=== PATIENT | female | born 1985 | race Caucasian/White ===

== ENCOUNTER 2016-09-15 22:52 | Emergency (ER) | payer MEDICAID ==
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
[2016-09-16 03:04] VITALS: BP 109/61
== END 2016-09-16 02:56 | disposition home or self-care (01) ==
LOC: ER 22:52
DX: S60.221A Contusion of right hand, initial encounter (principal); Y04.2XXA Assault by strike against or bumped into by another person, initial encounter; F41.1 Generalized anxiety disorder

== ENCOUNTER 2016-12-23 14:28 | Emergency (ER) | payer MEDICAID ==
[2016-12-23 14:59] VITALS: BP 116/66
[2016-12-23] MEDS ORDERED: ACETAMINOPHEN 500 MG TABLET PO ONE (15:08)
--- OUTSIDE RECORDS SUMMARY | 2016-12-23 15:18 | XMS REPORT | Continuity of Care Document ---
:1985 Author Organization [facility] ([facility]) Address [address] [place] [address] Phone [phone] Care Team Providers Name Role Phone Unavailable Primary Care Provider Unavailable Source Comments This disclosure is being made pursuant to the Care Everywhere program, applicable federal and state laws, and may not contain all informaitonavailable regarding this patient.[facility] ([facility]) Active Allergies and Adverse Reactions No Active Allergies Current Medications Not on file Active Problems Not on file Social History Tobacco Use Types Packs/Day Years Used Date Never Assessed Last Filed Vital Signs Vital Sign Reading Time Taken Blood Pressure - - Pulse - - Temperature - - Respiratory Rate - - Height 1.63 m (5' 4.17") 02/26/2005 9:32 AM CDT Weight 63.2 kg (139 lb 5.3 oz) 02/26/2005 9:32 AM CDT Body Mass Index 23.79 02/26/2005 9:32 AM CDT Oxygen Saturation - - Plan of Care Health Maintenance Due Date Last Done Comments Hepatitis B Vaccine (1 of 3 - Primary Series) 1987 Tdap Vaccine 1998 Cervical Cancer Screening 2005 Lipid Disorder Screening 2005 MMR Vaccine 2005 Td Vaccine 2005 Varicella Vaccine (1 of 2 - Adult - No Evidence of 2005 Immunity) Influenza Vaccine: Seasonal (#1) 04/06/2016 Results from Last 3 Months Not on file
--- NOTE | 2016-12-23 15:37 | ERNOTE ---
Medical Problem HPI - Narrative Date of Service: 12/23/16 - General Chief Complaint: General Assessment Time Seen by Provider: 12/23/16 14:59 Source: patient Exam Limitations: no limitations - Immun/Allergies/Home Medications Immunizations: IMMUNIZATION HX Immunizations Up to Date Yes History of Influenza Vaccine Yes Hx Pneumococcal Vaccination No Allergies/Adverse Reactions: Allergies ibuprofen [From Advil] Adverse Reaction (Mild, Verified 12/23/16 14:59) stomache castañeda Home Medications: HOME MEDICATIONS Amox Tr/Potassium Clavulanate [Augmentin 875-125 Tablet] 875 mg PO Q12H #20 tab 12/23/16 [Last Taken Unknown] oxyCODONE HCL/ACETAMINOPHEN [Percocet 5 MG/325 MG] 1 tab PO Q6H #20 tablet 12/23 [Last Taken Unknown] - History of Present History Narrative: Patient comes due to L ear pain and drainage. Timing: constant Severity: severe Modifying Factors - (Improves): Present: other - nothing Modifying Factors - (Worsens): Present: other - nothing Review of Systems - Review of Systems Constitutional: Absent: fever, chills, weakness, malaise EYE: Present: no symptoms reported ENT: Present: ear pain - L ear, ear discharge - L ear Respiratory: Present: no symptoms reported Cardiology: Present: no symptoms reported Gastrointestinal/Abdominal: Present: no symptoms reported Genitourinary: Present: no symptoms reported Musculoskeletal: Present: no symptoms reported Skin: Present: no symptoms reported Neurological: Present: no symptoms reported Endocrine: Present: no symptoms reported Hematologic/Lymphatic: Present: no symptoms reported Psych: Present: no symptoms reported All Other Systems: All systems neg except as marked - Patient's Past Medical History Patient History - Medical: Anxiety, Other Patient History - Cardiac/Respiratory: No pertinent hx Patient History - Cancer: No Hx of Cancer Patient History - Surgical Procedures: Appendectomy, D & C, Tubal Ligation, Other Patient History - Other: None - Family History Father Family History - Medical: Renal Disease Brother Family History - Medical: Seizures, Other Grandfather-Maternal Family History - Medical: Diabetes Type 2 Grandmother-Maternal Family History - Medical: No pertinent hx Family History - Cardiac/Respiratory: No pertinent hx - Social History Living Situations: home Psych History: Hx of Anxiety, Hx of Depression Have you smoked in the past 12 months: No Alcohol Use: none Drug Use: none - Immunizations Immunizations Up to Date: Yes Hx Pneumococcal Vaccination: No History of Influenza Vaccine: Yes Physical Exam - Physical Exam General Appearance: Present: wd/wn, alert, no apparent distress Eye Exam: Normal inspection: bilateral, PERRL: bilateral, EOMI: bilateral Ears, Nose, Throat: Present: abnormal TM (L) - There is dullness, erythema, and swelling. There is a purulent discharge coming out the TM. Perforation at 6 o' clock was noticed., normal pharynx. Absent: tonsillar swelling, dry mucous membranes Neck: Present: normal inspection, nontender Respiratory: Present: no respiratory distress, normal breath sounds, no accessory muscle use, chest nontender, lungs clear Cardiovascular/Chest: Present: regular rate, rhythm, no murmur, normal peripheral pulses Gastrointestinal/Abdominal: Present: normal bowel sounds, nontender, nondistended, soft, no organomegaly Back Exam: Present: normal inspection, normal range of motion, no CVA tenderness , no vertebral tenderness Extremity Exam: Present: normal inspection, non-tender, normal range of motion, no edema Neurological Exam: Present: alert, oriented, normal mood/affect, no motor/ sensory deficits Skin Exam: Present: normal color, warm/dry Lymphatic Exam: Present: no adenopathy ED Progress - Date and Time Seen: Date and Time: 12/23/16 15:34 Patient will be given pain management for L otitis media and antibiotics. Patient is to follow up with PCP. - Vital Signs Patient's Vital Signs:: I have reviewed the patient's vital signs. Vital Signs: Vital Signs 12/23/16 14:51 Temperature 37 C Pulse Rate 76 Respiratory 16 Rate Blood Pressure 116/66 O2 Sat by Pulse 98 Oximetry - Progress/Reassessment Chief Complaint: General Assessment Progress:: Unchanged - Transfer of Care Expected Disposition: Discharge Plan - Plan Plan: F/U with PCP. Departure - Departure Clinical Impression: Otitis media of left ear Qualifiers: Otitis media type: suppurative Chronicity: acute Recurrence: not specified as recurrent Spontaneous tympanic membrane rupture: with spontaneous rupture Qualified Code(s): H66.012 - Acute suppurative otitis media with spontaneous rupture of ear drum, left ear Disposition: Home self-care Condition: Stable Instructions: Otitis Media, Adult, [id number], Eardrum Perforation Referrals: WengerKeller,Arun, MD [Primary Care Provider] - Prescriptions: Amox Tr/Potassium Clavulanate [Augmentin 875-125 Tablet] 875 mg PO Q12H #20 tab oxyCODONE HCL/ACETAMINOPHEN [Percocet 5 MG/325 MG] 1 tab PO Q6H #20 tablet
== END 2016-12-23 15:39 | disposition home or self-care (01) ==
LOC: ER 14:28
DX: H66.012 Acute suppurative otitis media with spontaneous rupture of ear drum, left ear (principal)

== ENCOUNTER 2020-12-10 14:31 | Observation (INO) ==
[2020-12-10] MEDS ORDERED: ONDANSETRON HCL/PF 2 MG/ML VIAL IV ONE (15:09)
[2020-12-10] MEDS ORDERED: KETOROLAC TROMETHAMINE 30 MG/ML VIAL IV ONE (15:09)
[2020-12-10] MEDS ORDERED: NORMAL SALINE 1,000 ML IV ONE ×2 (15:09→16:44)
[2020-12-10 15:20] LABS: Urine Bilirubin Negative (NEGATIVE); Urine Blood 250 /ul (NEGATIVE); Urine Ketone Negative (NEGATIVE); Urine Nitrite Negative (NEGATIVE); Urine Protein Negative (NEGATIVE); Urine Specific Gravity >=1.030 SP.GR. (1.005-1.010); Urine Urobilinogen Normal (NORMAL)
[2020-12-10 15:25] LABS: Hemoglobin 11.8 gm/dL (12.5-16.0); Mean Cell Volume 92.8 fl (78-100); Mean Corpuscular Hemoglobin 30.4 pg (27-31); Mean Corpuscular Hgb Conc 32.8 g/dl (32-36); Mean Platelet Volume 9.4 fl (8-12.5); Neutrophil # 2.9 K/mm3 (1.3-6.0); Neutrophil % 47.5 % (42-75.0); Platelet Count 300 K/mm3 (150-450); Red Blood Count 3.88 M/mm3 (4.2-5.4); Red Cell Distribution Width 12.9 % (11.5-14.0); White Blood Count 6.1 K/mm3 (4.0-10.5)
[2020-12-10 15:35] LABS: Urine Appearance Clear (CLEAR); Urine Bacteria 1+; Urine Color Yellow; Urine RBC >50 /hpf (0-5); Urine WBC None Seen /hpf (0-5)
[2020-12-10] MEDS ORDERED: PROCHLORPERAZINE EDISYLATE 5 MG/ML VIAL IV ONE (15:39)
[2020-12-10 15:44] LABS: Albumin * 3.6 gm/dl (3.4-5.0); Anion Gap 8.6 mmol/L (6.8-13.8); BUN/Creatinine Ratio 9.7 (9.0-21.6); Bilirubin, Total 0.2 mg/dL (0.0-1.1); CRP 0.3 mg/dL (0.0-0.9); Ca. Corrected For Albumin 8.7 mg/dL (8.4-10.2); Calcium * 8.7 mg/dL (7.9-10.9); Carbon Dioxide 29.2 mmol/L (24-32.6); Potassium 2.8 mmol/L (3.4-4.6); Total Protein 7.2 gm/dL (6.2-8.2)
[2020-12-10] MEDS ORDERED: MORPHINE SULFATE 4 MG/ML SYRG IV ONE ×2 (15:59→20:15)
[2020-12-10 16:00] LABS: Cocaine Ur Negative (NEGATIVE); Urine Barbiturate Negative (NEGATIVE); Urine Benzodiazepines Negative (NEGATIVE); Urine Opiates Negative (NEGATIVE); Urine PCP Negative (NEGATIVE); Urine THC Negative (NEGATIVE)
[2020-12-10] MEDS ORDERED: HYDROmorphone HCL 1 MG/ML DISP.SYRIN IV ONE (16:44)
[2020-12-10] MEDS ORDERED: POTASSIUM CHLORIDE IN WATER 100 ML IV ONE (17:26)
--- NOTE | 2020-12-10 17:34 | ERNOTE ---
Abdominal HPI - Narrative Date of Service: 12/10/20 - General Chief Complaint: General Assessment Time Seen by Provider: 12/10/20 15:10 Source: patient, RN notes reviewed Exam Limitations: clinical condition - Immun/Allergies/Home Medications Immunizatons: IMMUNIZATION HX Immunizations Up to Date Yes History of Influenza Vaccine No Hx Pneumococcal Vaccination No Allergies/Adverse Reactions: Allergies ibuprofen [From Advil] Adverse Reaction (Mild, Verified 12/10/20 15:08) stomach castañeda, migraines Home Medications: HOME MEDICATIONS NK 12/10/20 [Last Taken Unknown] - History of Present Illness Narrative: Frida is a 35-year-old female who presents to the emergency department for severe left lower quadrant abdominal pain and left flank pain. She has also been vomiting as well. This began just 30 minutes prior to arrival. She denies any constipation or diarrhea. Her menses began 2 days ago and continues now. She denies having any similar pain in the past. She has not taken anything for her symptoms so far. Date (Duration): 12/10/20 Time (Timing): 14:00 Timing: constant Quality: severe Activities at Onset: none Modifying Factors - (Improves): Absent: rest, movement, vomiting Modifying Factors - (Worsens): Absent: rest, movement, vomiting Associated Symptoms: Present: back pain, nausea, vomiting. Absent: chest pain, fever/chills Prior Abdominal Problems: Absent: similar symptoms Prior Treatment: Absent: recently seen Review of Systems - Review of Systems Constitutional: Absent: recent illness, fever, chills EYE: Present: no symptoms reported ENT: Present: no symptoms reported Respiratory: Absent: shortness of breath, cough Cardiology: Absent: chest pain, palpitations, syncope Gastrointestinal/Abdominal: Present: See HPI Genitourinary: Absent: frequency, dysuria Musculoskeletal: Present: back pain. Absent: neck pain, joint pain Skin: Absent: rash, lesions Neurological: Absent: headache, dizziness/light-headedness Endocrine: Present: no symptoms reported Hematologic/Lymphatic: Absent: easy bruising, easy bleeding Psych: Present: no symptoms reported Medical History (Last Reviewed 12/10/20 @ 17:38 by Marline Raman NP) Severe anxiety with panic (Chronic) Post depression (Acute) ADHD (Chronic) No pertinent past medical history (Acute) Bipolar affective disorder, current episode depressed (Chronic) Surgical History: Surgical History (Last Reviewed 12/10/20 @ 17:38 by Marline Raman NP) H/O tubal ligation (Acute) Hx of dilation and curettage (Acute) Family History: Family History (Last Reviewed 12/10/20 @ 17:38 by Marline Raman NP) Mother Asthma Other No pertinent family history Social History: (Last Reviewed 12/10/20 @ 17:38 by Marline Raman NP) Social History: Marital status: lives independently: Yes household members: children number of children: 4 current occupational status: employed current occupation: [employer] Highest level of school completed/degree received: high school graduate Service: No Tobacco: Smoking Status: Never smoker Alcohol: alcohol intake: never Substance Use: substance use type: does not use Dietary Habits: caffeine: Yes Type: carbonated beverages Physical Exam - Physical Exam General Appearance: Present: wd/wn, alert, moderate distress, other - vomiting Head Exam: Present: normal inspection Eye Exam: Normal inspection: bilateral Neck: Present: normal inspection, nontender, supple Respiratory: Present: no respiratory distress, normal breath sounds, no accessory muscle use, lungs clear Cardiovascular/Chest: Present: no murmur, normal peripheral pulses, bradycardia Gastrointestinal/Abdominal: Present: normal bowel sounds, nondistended, soft, tenderness - LLQ Back Exam: Present: normal range of motion, CVA tenderness (L). Absent: CVA tenderness (R) Extremity Exam: Present: normal inspection, normal range of motion Neurological Exam: Present: alert, oriented, normal mood/affect, no craig r/sensory deficits Skin Exam: Present: other - Pale, diaphoretic Progress - Results and Orders Patient's Lab Results:: I have reviewed the patient's lab results. - Vital Signs Patient's Vital Signs:: I have reviewed the patient's vital signs. Vital Signs: Vital Signs 12/10/20 14:57 12/10/20 15:25 12/10/20 15:34 Temperature 35.6 C L Pulse Rate 53 L 50 L 48 L Respiratory Rate 16 22 H 20 Blood Pressure 145/81 H 133/82 133/82 O2 Sat by Pulse Oximetry 100 100 100 12/10/20 15:45 12/10/20 16:03 Temperature Pulse Rate 46 L 45 L Respiratory Rate 11 L 16 Blood Pressure 133/80 126/79 O2 Sat by Pulse Oximetry 100 96 - CT/Ultrasound CT/Ultrasound Narrative: Stone protocol CT: IMPRESSION: 1. SUBOPTIMAL UNENHANCED STUDY. 2. PROMINENT RIGHT LOBE LIVER, UNCHANGED FROM 2015; THIS MOST LIKELY REFLECTS A NANY'S LOBE CORRELATION REQUIRED. 3. SEVERAL SMALL TINY CALCULI WITHIN THE RIGHT AND LEFT KIDNEYS. 4. MILDLY PROMINENT LEFT URETER WITH A PROBABLE 3 MM CALCULUS IN THE DISTAL LEFT URETER. Electronically signed by Jaylan Mason M.D.. - Progress/Reassessment Chief Complaint: General Assessment Progress:: Improved Plan - Plan Plan: CT scan shows a 3 mm stone at the left distal ureter with mild dilation of the ureter but no hydronephrosis. Urine shows no sign of infection. CBC is unremarkable. K+ is 2.8 and lactic is 2.3. She was initially given Toradol 30 mg IV and Zofran 8 mg IV. She continued to have severe pain and vomiting. She was then given Compazine 10 mg IV. The vomiting subsided but she continues to have some nausea. 4 mg of morphine was given for pain. Her pain improved from a 10 to an 8. She was then given 1 mg of Dilaudid IV. She reports that the pain is only intermittent now rather than constant. K rider has also been started. Given the patient's nausea and vomiting, it is unlikely that she will be able to tolerate oral pain medications at home for her ureteral colic live alone oral potassium supplementation. Dr. Swanson was contacted and the patient will be admitted to observation. Departure Clinical Impression: Ureteral colic, Hypokalemia Vomiting Qualifiers: Vomiting type: unspecified Vomiting Intractability: non-intractable Nausea presence: with nausea Qualified Code(s): R11.2 - Nausea with vomiting, unspecified - Departure Disposition: Still a patient Condition: Stable
--- NOTE | 2020-12-10 20:51 | HP ---
Chief Complaint - Chief Complaint Date of Service: 12/10/20 Time of Service: 20:51 Chief Complaint: flank pain, nausea, vomiting History of Present Illness: 35-year-old female with no real pertinent past medical history presented to the ER yesterday afternoon after sudden onset flank pain, nausea vomiting. Abdominal CT scan showed her to have several tiny calculi within both round of kidney and a 3 mm stone in her distal left ureter. Not causing obstruction and no signs of infection. UA showed her to have blood and red blood cells in the urine as well as some epithelial cells and 1+ bacteria but no concern for UTI. Patient's labs showed her to be slightly anemic with a hemoglobin 11.8 and hematocrit 36. Her CHEM panel was remarkable for a hypokalemia at 2.8. Initial lactic acid was 2.3 which trended down to 1.7. Patient was requiring multiple antinausea medicines to control her vomiting and so patient was admitted under observation for this. Her vital signs are stable though and she was afebrile. On exam she had some epigastric tenderness as well as some left-sided flank pain. Otherwise it was unremarkable. Patient was given fluids in the ER as well as Dilaudid and morphine for her pain. Fluids were continued on the floor as well as being started on Flomax. Stool softeners were ordered. Potassium replacement therapy was also ordered. Medical History (Last Reviewed 12/10/20 @ 19:26 by Joyce Gaxiola RN) Severe anxiety with panic (Chronic) Post depression (Acute) ADHD (Chronic) No pertinent past medical history (Acute) Bipolar affective disorder, current episode depressed (Chronic) Surgical History: Surgical History (Last Reviewed 12/10/20 @ 19:26 by Joyce Gaxiola RN) H/O tubal ligation (Acute) Hx of dilation and curettage (Acute) History of appendectomy Onset Date: ~1991 Family History: Family History (Last Reviewed 12/10/20 @ 17:38 by Marline Raman NP) Mother Asthma Other No pertinent family history Social History: (Last Reviewed 12/10/20 @ 19:27 by Joyce Gaxiola RN) Social History: Marital status: lives independently: Yes household members: children number of children: 4 current occupational status: employed current occupation: [employer] Highest level of school completed/degree received: high school graduate Service: No Tobacco: Smoking Status: Never smoker Alcohol: alcohol intake: never Substance Use: substance use type: does not use Dietary Habits: caffeine: Yes Type: carbonated beverages Review Of Systems (GEN) - Review of Systems Generalized/Overall Review: Absent: Weakness, Fever EENTM: Present: No Symptoms Reported Respiratory: Present: No Symptoms Reported Cardiac: Present: No Symptoms Reported Abdominal: Present: Nausea, Vomiting, Abdominal Pain Genitourinary: Absent: Burning, Itching, Urgency, Frequency Musculoskeletal: Present: No Symptoms Reported Neurological: Present: No Symptoms Reported Skin: Present: No Symptoms Reported Endocrine: Present: No Symptoms Reported Immunizations: IMMUNIZATION HX Immunizations Up to Date Yes History of Influenza Vaccine No Hx Pneumococcal Vaccination No Allergies/Adverse Reactions: Allergies Allergy/AdvReac Type Severity Reaction Status Date / Time ibuprofen [From Advil] AdvReac Mild stomach Verified 12/10/20 15:08 castañeda, migraines Home Medications: HOME MEDICATIONS NK 12/10/20 [Last Taken Unknown] Exam - Exam Vital Signs: Vital Signs - Last Taken Temp 36.3 C 12/10/20 19:14 Pulse 66 12/10/20 19:14 Resp 20 12/10/20 19:14 BP 130/85 12/10/20 19:14 Pulse Ox 96 12/10/20 19:14 Constitutional: Present: Alert, Oriented x3, Cooperative, Moderate distress - Left-sided flank pain, nausea and vomiting ENT Exam: Present: hearing grossly normal. Absent: nasal congestion, nasal drainage Eye Exam: bilateral eye: normal inspection, EOMI Neck: Present: non-tender, supple Back Exam: Present: CVA tenderness (L) Respiratory: Present: lungs clear, normal breath sounds Cardiovascular/Chest: Present: regular rate, rhythm, no murmur Abdomen: Present: Normal bowel sounds, guarding, CVA tenderness. Absent: firm Extremity: Present: normal inspection, no pedal edema Skin Exam: Present: normal color, warm/dry Appearance: Present: appropriate appearance, appropriate insight Eye contact: Present: cooperative, good eye contact Thoughts: Present: normal thought pattern, normal mood /affect Diagnostic Studies: Abnormal Lab Results 12/10/20 12/10/20 12/10/20 Range/Units 15:03 15:15 15:15 RBC 3.88 L (4.2-5.4) M/mm3 Hgb 11.8 L (12.5-16.0) gm/dL Hct 36.0 L (37.0-47.0) % Eosinophils % 4.8 H (0.0-3.0) % Potassium 2.8 L (3.4-4.6) mmol/L Random Glucose 118 H (70-110) mg/dL Lactic Acid, Venous (0.4-2.0) mmol/L Urine Blood 250 H (NEGATIVE) /ul Urine RBC >50 H (0-5) /hpf Ur Epithelial Cells 5-10 H (0-5) /hpf Urine Bacteria 1+ H (NONE) 12/10/20 Range/Units 15:15 RBC (4.2-5.4) M/mm3 Hgb (12.5-16.0) gm/dL Hct (37.0-47.0) % Eosinophils % (0.0-3.0) % Potassium (3.4-4.6) mmol/L Random Glucose (70-110) mg/dL Lactic Acid, Venous 2.3 H* (0.4-2.0) mmol/L Urine Blood (NEGATIVE) /ul Urine RBC (0-5) /hpf Ur Epithelial Cells (0-5) /hpf Urine Bacteria (NONE) Laboratory Results WBC 6.1 K/mm3 (4.0-10.5) 12/10/20 15:15 RBC 3.88 M/mm3 (4.2-5.4) L 12/10/20 15:15 Hgb 11.8 gm/dL (12.5-16.0) L 12/10/20 15:15 Hct 36.0 % (37.0-47.0) L 12/10/20 15:15 MCV 92.8 fl (78-100) 12/10/20 15:15 MCH 30.4 pg (27-31) 12/10/20 15:15 MCHC 32.8 g/dl (32-36) 12/10/20 15:15 RDW 12.9 % (11.5-14.0) 12/10/20 15:15 Plt Count 300 K/mm3 (150-450) 12/10/20 15:15 MPV 9.4 fl (8-12.5) 12/10/20 15:15 Immature Gran % (Auto) 0.30 % (0.001-0.429) 12/10/20 15:15 Immature Gran # (Auto) 0.02 K/mm3 (0.000-0.0310) 12/10/20 15:15 Neutrophils % 47.5 % (42-75.0) 12/10/20 15:15 Lymphocytes % 40.0 % (20-51) 12/10/20 15:15 Monocytes % 7.1 % (0.0-9) 12/10/20 15:15 Eosinophils % 4.8 % (0.0-3.0) H 12/10/20 15:15 Basophils % 0.3 % (0.0-1.0) 12/10/20 15:15 Nucleated RBC % 0.0 k/mm3 (0-1) 12/10/20 15:15 Neutrophils # 2.9 K/mm3 (1.3-6.0) 12/10/20 15:15 Lymphocytes # 2.43 k/mm3 (1.5-3.5) 12/10/20 15:15 Monocytes # 0.4 k/mm3 (0.0-1.0) 12/10/20 15:15 Eosinophils # 0.3 k/mm3 (0.0-0.7) 12/10/20 15:15 Absolute Basophils 0.0 k/mm3 (0.0-0.1) 12/10/20 15:15 Sodium 140 mmol/L (132-142) 12/10/20 15:15 Plasma Sodium 140 mmol/L (130-142) 12/10/20 15:15 Potassium 2.8 mmol/L (3.4-4.6) L 12/10/20 15:15 Chloride 105 mmol/L (97-106) 12/10/20 15:15 Carbon Dioxide 29.2 mmol/L (24-32.6) 12/10/20 15:15 Anion Gap 8.6 mmol/L (6.8-13.8) 12/10/20 15:15 BUN 7 mg/dL (3-23) 12/10/20 15:15 Creatinine 0.72 mg/dL (0.4-1.4) 12/10/20 15:15 Est GFR (Non-Af Amer) 99 mL/min (60-130) D 12/10/20 15:15 BUN/Creatinine Ratio 9.7 (9.0-21.6) 12/10/20 15:15 Random Glucose 118 mg/dL (70-110) H 12/10/20 15:15 Lactic Acid, Venous 1.7 mmol/L (0.4-2.0) 12/10/20 18:30 Calcium 8.7 mg/dL (7.9-10.9) 12/10/20 15:15 Calcium Adj for Albumin 8.7 mg/dL (8.4-10.2) 12/10/20 15:15 Total Bilirubin 0.2 mg/dL (0.0-1.1) 12/10/20 15:15 AST 13 U/L (0-48) 12/10/20 15:15 ALT 19 U/L (19-67) 12/10/20 15:15 Alkaline Phosphatase 80 U/L (50-170) 12/10/20 15:15 C-Reactive Prot, Quant 0.3 mg/dL (0.0-0.9) 12/10/20 15:15 Total Protein 7.2 gm/dL (6.2-8.2) 12/10/20 15:15 Albumin 3.6 gm/dl (3.4-5.0) 12/10/20 15:15 Urine Color Yellow 12/10/20 15:03 Urine Appearance Clear (CLEAR) 12/10/20 15:03 Urine pH 6.0 pH (5.0-7.0) 12/10/20 15:03 Ur Specific [place] >=1.030 SP.GR. (1.005-1.010) 12/10/20 15:03 Urine Protein Negative mg/dL (NEGATIVE) 12/10/20 15:03 Urine Glucose (UA) Negative mg/dL (NEGATIVE) 12/10/20 15:03 Urine Ketones Negative mg/dL (NEGATIVE) 12/10/20 15:03 Urine Blood 250 /ul (NEGATIVE) H 12/10/20 15:03 Urine Nitrate Negative (NEGATIVE) 12/10/20 15:03 Urine Bilirubin Negative mg/dl (NEGATIVE) 12/10/20 15:03 Urine Urobilinogen Normal EU/dl (NORMAL) 12/10/20 15:03 Ur Leukocyte Esterase Negative /ul (NEGATIVE) 12/10/20 15:03 Urine RBC >50 /hpf (0-5) H 12/10/20 15:03 Urine WBC None seen /hpf (0-5) 12/10/20 15:03 Ur Epithelial Cells 5-10 /hpf (0-5) H 12/10/20 15:03 Urine Bacteria 1+ (NONE) H 12/10/20 15:03 Urine Culture Comments No culture indicated 12/10/20 15:03 Urine Opiates Screen Negative (NEGATIVE) 12/10/20 15:03 Barbiturate Screen Negative (NEGATIVE) 12/10/20 15:03 Ur Phencyclidine Scrn Negative (NEGATIVE) 12/10/20 15:03 Urine Amphetamine Negative (NEGATIVE) 12/10/20 15:03 U Benzodiazepines Scrn Negative (NEGATIVE) 12/10/20 15:03 Urine Cocaine Screen Negative (NEGATIVE) 12/10/20 15:03 Urine Marijuana (THC) Negative (NEGATIVE) 12/10/20 15:03 SARS-CoV-2 (PCR) Not detected (NotDetected) 12/10/20 17:26 Assessment/Plan - Narrative Narrative: 35-year-old female with sudden onset left leg pain, nausea vomiting. Placed under observation for nonobstructing left nephrolithiasis at her distal ureter. IV fluids continued with normal saline at 200 cc/h. Flomax ordered to be taken until she passes a stone. Potassium riders ordered for a total of 50 mEq to be given this evening. Zofran for nausea. Morphine 4 mg every 4 hours as needed for pain control. Will repeat BMP in the morning. Will transition to oral pain medicine and oral antinausea medicines in the morning if she has not passed the stone tonight. Likely discharge home tomorrow. Clear liquid diet ordered though if she is nauseous then she should take it easy with this. SCDs to be worn for DVT prophylaxis while in bed. Nurse to call questions or concerns. - Assessment/Plan (1) Ureteral colic Problem: Acute (2) Vomiting Problem: Acute Qualifiers: Vomiting type: unspecified Vomiting Intractability: non-intractable Nausea presence: with nausea Qualified Code(s): R11.2 - Nausea with vomiting, unspecified (3) Hypokalemia Problem: Acute (4) Left nephrolithiasis Problem: Acute
[2020-12-10] MEDS: POTASSIUM CHLORIDE IN WATER 100 ML IV SCH ×3 (21:41→23:48)
[2020-12-10] MEDS: DOCUSATE SODIUM 100 MG CAPSULE PO SCH (21:46)
[2020-12-10] MEDS: TAMSULOSIN HCL 0.4 MG CAP.SR.24H PO SCH (21:46)
[2020-12-10] MEDS: NORMAL SALINE 1,000 ML IV SCH (23:48)
[2020-12-11] MEDS: ONDANSETRON HCL/PF 2 MG/ML VIAL IV PRN ×2 (00:31→12:55)
[2020-12-11] MEDS: MORPHINE SULFATE 4 MG/ML SYRG IV PRN ×3 (00:33→12:56)
[2020-12-11] MEDS: POTASSIUM CHLORIDE IN WATER 100 ML IV SCH (00:50)
[2020-12-11] MEDS: NORMAL SALINE 1,000 ML IV SCH ×4 (04:50→16:57)
[2020-12-11 06:44] LABS: Anion Gap 13.3 mmol/L (6.8-13.8); BUN/Creatinine Ratio 10.3 (9.0-21.6); Calcium * 7.3 mg/dL (7.9-10.9); Carbon Dioxide 23.7 mmol/L (24-32.6); Estimated Creat Clear 79.4
[2020-12-11] MEDS: DOCUSATE SODIUM 100 MG CAPSULE PO SCH (08:15)
[2020-12-11] MEDS: HYDROcodone/ACETAMINOPHEN 1 EACH TABLET PO PRN ×3 (10:14→17:22)
[2020-12-11] MEDS: ONDANSETRON HCL 4 MG TABLET PO PRN ×2 (10:15→17:23)
--- NOTE | 2020-12-11 12:37 | DS ---
(1) Ureteral colic Problem: Acute (2) Vomiting Problem: Acute Qualifiers: Vomiting type: unspecified Vomiting Intractability: non-intractable Nausea presence: with nausea Qualified Code(s): R11.2 - Nausea with vomiting, unspecified (3) Hypokalemia Problem: Acute (4) Left nephrolithiasis Problem: Acute Date of Discharge:: 12/11/20 Hospital Course: 35-year-old female admitted yesterday evening for hypokalemia, nausea and vomiting, and left flank pain secondary to 3 mm nonobstructing kidney stone. Patient's pain was well controlled when she was transitioned over to oral pain medicine. Her nausea resolved after stopping the IV pain medicine. Her pot assium was replenished and back up to normal limits today prior to discharge. Patient has not passed the stone yet but feels much better. We will send her home with some hydrocodone for the next for 5 days as well as Flomax for next 5 days. No reason why she will pass a stone prior to this. Also send in some Zofran to help with her nausea in case it returns currently she feels much better and has not had any issues with this since being transitioned away from the IV pain medicine. She has been up and walking which I encouraged her to continue to do upon discharge. Her vital signs been stable and she been afebrile. Patient can follow-up with me in 2 weeks if needed otherwise she will follow with her PCP at the same time to make sure she has passed her stones and there is no complications from this hospitalization visit. 45 minutes critical care time spent with patient with her exam, treatment plan discussed, discharge summary dictated, medications sent to her pharmacy, and follow-up appointments made. Procedures Performed: none Results and Findings: Lab Pending Results 12/10/20 15:03: Urine Color Yellow, Urine Appearance Clear, Urine pH 6.0, Ur Specific [place] >=1.030, Urine Protein Negative, Urine Glucose (UA) Negative, Urine Ketones Negative, Urine Blood 250 H, Urine Nitrate Negative, Urine Bilirubin Negative, Urine Urobilinogen Normal, Ur Leukocyte Esterase Negative, Urine RBC >50 H, Urine WBC None seen, Ur Epithelial Cells 5-10 H, Urine Bacteria 1+ H, Urine Culture Comments No culture indicated 12/10/20 15:03: Urine Opiates Screen Negative, Barbiturate Screen Negative, Ur Phencyclidine Scrn Negative, Urine Amphetamine Negative, U Benzodiazepines Scrn Negative, Urine Cocaine Screen Negative, Urine Marijuana (THC) Negative 12/10/20 15:15: WBC 6.1, RBC 3.88 L, Hgb 11.8 L, Hct 36.0 L, MCV 92.8, MCH 30.4, MCHC 32.8, RDW 12.9, Plt Count 300, MPV 9.4, Immature Gran % (Auto) 0.30, Immature Gran # (Auto) 0.02, Neutrophils % 47.5, Lymphocytes % 40.0, Monocytes % 7.1, Eosinophils % 4.8 H, Basophils % 0.3, Nucleated RBC % 0.0, Neutrophils # 2.9, Lymphocytes # 2.43, Monocytes # 0.4, Eosinophils # 0.3, Absolute Basophils 0.0 12/10/20 15:15: Sodium 140, Plasma Sodium 140, Potassium 2.8 L, Chloride 105, Carbon Dioxide 29.2, Anion Gap 8.6, BUN 7, Creatinine 0.72, Est GFR (Non-Af Amer) 99 D, BUN/Creatinine Ratio 9.7, Random Glucose 118 H, Calcium 8.7, Calcium Adj for Albumin 8.7, Total Bilirubin 0.2, AST 13, ALT 19, Alkaline Phosphatase 80, C-Reactive Prot, Quant 0.3, Total Protein 7.2, Albumin 3.6 12/10/20 15:15: Lactic Acid, Venous 2.3 H* 12/10/20 17:26: SARS-CoV-2 (PCR) Not detected 12/10/20 18:30: Lactic Acid, Venous 1.7 12/11/20 06:30: Sodium 142, Plasma Sodium 142, Potassium 4.0 D, Chloride 109 H, Carbon Dioxide 23.7 L, Anion Gap 13.3, BUN 9, Creatinine 0.87, Est GFR (Non-Af Amer) 80, BUN/Creatinine Ratio 10.3, Random Glucose 102, Calcium 7.3 L Discharge Location: Home Disposition: Home self-care Condition: Stable Discharge Activity: Activity as tolerated Discharge Diet: General/regular food Prescriptions (Any new or edited meds): Tamsulosin HCl [Flomax] 0.4 mg PO DAILY@1800 #5 cap.sr.24h Transmission Status: Pending to [place], [place] HYDROcodone/ACETAMINOPHEN [[place] 5-325] 1 ea PO Q6H PRN #20 tab PRN Reason: Pain Transmission Status: Received by [place] Ondansetron HCl [Zofran] 4 mg PO Q6H PRN #15 tab PRN Reason: Nausea And Vomiting Transmission Status: Pending to [place], [place] Complete Home Medications List: Complete Home Medication List: HYDROcodone/ACETAMINOPHEN [[place] 5-325] 1 ea PO Q6H PRN #20 tab 12/11/20 Ondansetron HCl [Zofran] 4 mg PO Q6H PRN #15 tab 12/11/20 Tamsulosin HCl [Flomax] 0.4 mg PO DAILY@1800 #5 cap.sr.24h 12/11/20
[2020-12-11] MEDS ORDERED: HYDROcodone/ACETAMINOPHEN 1 EACH TABLET PO ONE (14:23)
[2020-12-11] MEDS: TAMSULOSIN HCL 0.4 MG CAP.SR.24H PO SCH (17:01)
[2020-12-12] MEDS: ONDANSETRON HCL 4 MG TABLET PO PRN ×2 (00:52→09:11)
[2020-12-12] MEDS: HYDROcodone/ACETAMINOPHEN 1 EACH TABLET PO PRN (00:52)
[2020-12-12] MEDS: DOCUSATE SODIUM 100 MG CAPSULE PO SCH (09:12)
[2020-12-12] MEDS ORDERED: MAG HYDROX/ALUMINUM HYD/SIMETH 30 ML UDC PO ONE (11:17)
[2020-12-12] MEDS ORDERED: MAG HYDROX/ALUMINUM HYD/SIMETH 30 ML UDC ONE (11:32)
[2020-12-12 11:39] VITALS: BP 124/67
--- NOTE | 2020-12-12 18:17 | DS ---
(1) Ureteral colic Problem: Acute (2) Vomiting Problem: Acute Qualifiers: Vomiting type: unspecified Vomiting Intractability: non-intractable Nausea presence: with nausea Qualified Code(s): R11.2 - Nausea with vomiting, unspecified (3) Hypokalemia Problem: Acute (4) Left nephrolithiasis Problem: Acute Hospital Course: 35-year-old female admitted yesterday evening for hypokalemia, nausea and vomiting, and left flank pain secondary to 3 mm nonobstructing kidney stone. Patient's pain was well controlled when she was transitioned over to oral pain medicine. Her nausea resolved after stopping the IV pain medicine. Her potassium was replenished and back up to normal limits today prior to discharge. Patient has not passed the stone yet but feels much better. We will send her home with some hydrocodone for the next for 5 days as well as Flomax for next 5 days. No reason why she will pass a stone prior to this. Also send in some Zofran to help with her nausea in case it returns currently she feels much better and has not had any issues with this since being transitioned away from the IV pain medicine. She has been up and walking which I encouraged her to continue to do upon discharge. Her vital signs been stable and she been afebrile. Patient can follow-up with me in 2 weeks if needed otherwise she will follow with her PCP at the same time to make sure she has passed her stones and there is no complications from this hospitalization visit. 45 minutes critical care time spent with patient with her exam, treatment plan discussed, discharge summary dictated, medications sent to her pharmacy, and follow-up appointments made. No changes to patient's discharge summary or plan from the day before. Patient did remain 1 more day for pain control and nausea management after being evaluated yesterday and discharged. Exam unchanged from yesterday. Patient was discharged today on 12 December in stable condition. Patient was comfortable though she stated her pain was fairly high still. Patient's vital signs are stable overnight and she was tolerating clears prior to being discharged today. Again medications needed for this issue were sent to her pharmacy yesterday and so no new medicines were sent today. We will change this to 60 minutes of critical care time spent with patient on her discharge summary and plan. Procedures Performed: none Results and Findings: Lab Pending Results 12/10/20 15:03: Urine Color Yellow, Urine Appearance Clear, Urine pH 6.0, Ur Specific [place] >=1.030, Urine Protein Negative, Urine Glucose (UA) Negative, Urine Ketones Negative, Urine Blood 250 H, Urine Nitrate Negative, Urine Bilirubin Negative, Urine Urobilinogen Normal, Ur Leukocyte Esterase Negative, Urine RBC >50 H, Urine WBC None seen, Ur Epithelial Cells 5-10 H, Urine Bacteria 1+ H, Urine Culture Comments No culture indicated 12/10/20 15:03: Urine Opiates Screen Negative, Barbiturate Screen Negative, Ur Phencyclidine Scrn Negative, Urine Amphetamine Negative, U Benzodiazepines Scrn Negative, Urine Cocaine Screen Negative, Urine Marijuana (THC) Negative 12/10/20 15:15: WBC 6.1, RBC 3.88 L, Hgb 11.8 L, Hct 36.0 L, MCV 92.8, MCH 30.4, MCHC 32.8, RDW 12.9, Plt Count 300, MPV 9.4, Immature Gran % (Auto) 0.30, Immature Gran # (Auto) 0.02, Neutrophils % 47.5, Lymphocytes % 40.0, Monocytes % 7.1, Eosinophils % 4.8 H, Basophils % 0.3, Nucleated RBC % 0.0, Neutrophils # 2.9, Lymphocytes # 2.43, Monocytes # 0.4, Eosinophils # 0.3, Absolute Basophils 0.0 12/10/20 15:15: Sodium 140, Plasma Sodium 140, Potassium 2.8 L, Chloride 105, Carbon Dioxide 29.2, Anion Gap 8.6, BUN 7, Creatinine 0.72, Est GFR (Non-Af Amer) 99 D, BUN/Creatinine Ratio 9.7, Random Glucose 118 H, Calcium 8.7, Calcium Adj for Albumin 8.7, Total Bilirubin 0.2, AST 13, ALT 19, Alkaline Phosphatase 80, C-Reactive Prot, Quant 0.3, Total Protein 7.2, Albumin 3.6 12/10/20 15:15: Lactic Acid, Venous 2.3 H* 12/10/20 17:26: SARS-CoV-2 (PCR) Not detected 12/10/20 18:30: Lactic Acid, Venous 1.7 12/11/20 06:30: Sodium 142, Plasma Sodium 142, Potassium 4.0 D, Chloride 109 H, Carbon Dioxide 23.7 L, Anion Gap 13.3, BUN 9, Creatinine 0.87, Est GFR (Non-Af Amer) 80, BUN/Creatinine Ratio 10.3, Random Glucose 102, Calcium 7.3 L Discharge Location: Home Disposition: Home self-care Condition: Stable Discharge Activity: Activity as tolerated Discharge Diet: General/regular food Problem Oriented Discharge Instructions to Patient/Family: Renal Colic, [id number], Hypokalemia, Kidney Stones, [id number] Additional Patient Instructions (free text): One time hospital F/U with December 19 @ 0930. You will need to establish with a PCP following this. Prescriptions (Any new or edited meds): Tamsulosin HCl [Flomax] 0.4 mg PO DAILY@1800 #5 cap.sr.24h Transmission Status: Received by [place] HYDROcodone/ACETAMINOPHEN [[place] 5-325] 1 ea PO Q6H PRN #20 tab PRN Reason: Pain Transmission Status: Received [place] Ondansetron HCl [Zofran] 4 mg PO Q6H PRN #15 tab PRN Reason: Nausea And Vomiting Transmission Status: Received by [place] Complete Home Medications List: Complete Home Medication List: HYDROcodone/ACETAMINOPHEN [[place] 5-325] 1 ea PO Q6H PRN #20 tab 12/11/20 Ondansetron HCl [Zofran] 4 mg PO Q6H PRN #15 tab 12/11/20 Tamsulosin HCl [Flomax] 0.4 mg PO DAILY@1800 #5 cap.sr.24h 12/11/20 Forms: Patient Portal Registration, Work Release Form
== END 2020-12-12 12:22 | disposition home or self-care (01) ==
LOC: ER 14:31 → MS 14:31
PROVIDERS: ADMIT Family Medicine; ATTEND Family Medicine
DX: R10.32 Left lower quadrant pain; E87.6 Hypokalemia; N20.2 Calculus of kidney with calculus of ureter; R11.2 Nausea with vomiting, unspecified